=== PATIENT | male | born 1945 | race Hispanic/Latino ===

== ENCOUNTER → 2018-09-13 | Outpatient (CLI) | payer OTHER ==
[~2018-09-13] MED LIST: ATOR10 PO; CHOL200013 PO; CLOP75TA14 PO; CYAN10009 PO; GLIP1TAB6 PO; ISOS30TA6 PO; LOSA1TAB37 PO; METO-391 PO
== END | disposition home or self-care (01) ==
LOC: RAH 13:53
PROVIDERS: ATTEND Internal Medicine
DX: S09.90XA Unspecified injury of head, initial encounter (principal); S00.03XA Contusion of scalp, initial encounter; Z86.73 Personal history of transient ischemic attack (TIA), and cerebral infarction without residual deficits; W19.XXXA Unspecified fall, initial encounter; Y93.89 Activity, other specified; Y92.89 Other specified places as the place of occurrence of the external cause; Y99.8 Other external cause status
CPT/HCPCS: 70450

== ENCOUNTER → 2018-10-24 | Outpatient (CLI) | payer OTHER | END | disposition home or self-care (01) | LOC: SHCH 14:32 | PROVIDERS: ATTEND Internal Medicine Cardiovascular Disease | DX: I73.9 Peripheral vascular disease, unspecified (principal); I87.2 Venous insufficiency (chronic) (peripheral) | CPT/HCPCS: 93925; 93970 ==

== ENCOUNTER → 2019-07-31 | Outpatient (CLI) | payer OTHER ==
[~2019-07-31] MED LIST changes: +CYAN-52 PO; -CYAN10009 PO
== END | disposition home or self-care (01) ==
LOC: SHCH 07:37
PROVIDERS: ATTEND Internal Medicine Cardiovascular Disease
DX: I65.23 Occlusion and stenosis of bilateral carotid arteries (principal)
CPT/HCPCS: 93880

== ENCOUNTER → 2020-03-04 | Outpatient (CLI) | payer OTHER | END | disposition home or self-care (01) | LOC: SHCH 12:49 | PROVIDERS: ATTEND Internal Medicine Cardiovascular Disease | DX: I35.1 Nonrheumatic aortic (valve) insufficiency (principal); I65.23 Occlusion and stenosis of bilateral carotid arteries; I25.5 Ischemic cardiomyopathy; I10 Essential (primary) hypertension; E66.9 Obesity, unspecified; E78.5 Hyperlipidemia, unspecified; E11.9 Type 2 diabetes mellitus without complications | CPT/HCPCS: 93306; 93356; 93880 ==

== ENCOUNTER 2021-03-09 06:04 | Day surgery (SDC) | payer OTHER ==
[2021-03-03 13:48] LABS: BASOPHILS % (AUTO) 0.4 % (0.0-5.0); EOSINOPHILS % (AUTO) 1.2 % (0.0-8.0); HEMATOCRIT 37.5 % (42-54); LYMPHOCYTES % (AUTO) 12.5 % (21.0-51.0); MEAN CORPUSCULAR HEMOGLOBIN 29.5 pg (27.0-33.0); MEAN CORPUSCULAR HGB CONC 32.5 g/dL (32.0-36.0); MEAN CORPUSCULAR VOLUME 90.6 fL (79-99); MONOCYTES % (AUTO) 5.4 % (3.0-13.0); NEUTROPHILS % (AUTO) 79.6 % (40.0-77.0); PLATELET COUNT (AUTO) 173 K/uL (130-400); RED BLOOD CELL COUNT(AUTO) 4.14 MIL/uL (4.50-6.20); RED CELL DISTRIBUTION WIDTH 15.3 % (11.0-15.5); WHITE BLOOD COUNT (AUTO) 9.3 K/uL (4.8-10.8)
[2021-03-03 13:53] LABS: APPEARANCE,URINE Clear (CLEAR); BILIRUBIN,URINE Negative (NEGATIVE); COLOR,URINE Yellow (YELLOW); GLUCOSE, URINE (UA) >=1000 mg/dL (NEGATIVE); KETONES,URINE Trace mg/dL (NEGATIVE); LEUKOCYTE ESTERASE ,URINE Negative (NEGATIVE); NITRATE,URINE Negative (NEGATIVE); OCCULT BLOOD,URINE Negative (NEGATIVE); PROTEIN,URINE Negative (NEGATIVE)
[2021-03-03 13:57] LABS: BACTERIA,URINE Rare /HPF (None Seen); RBC,URINE 0-1 /HPF (0-1); SQUAMOUS EPITHELIAL CELL,UR Rare /HPF (0-2); WBC,URINE 0-1 /HPF (0-1)
[2021-03-03 14:01] LABS: INR 0.98 (0.85-1.15); PROTHROMBIN TIME 10.7 SEC (9.6-11.6)
[2021-03-03 14:03] LABS: PARTIAL THROMBOPLASTIN TIME 28.8 SEC (26.3-35.5); POTASSIUM 4.3 mmol/L (3.5-5.1)
[2021-03-08 15:13] VITALS: BP 125/58
[2021-03-09] VITALS (10 sets, daily range): BP systolic 101–153; BP diastolic 54–79
[~2021-03-09] VITALS: Ht 172.7 cm; Wt 95.9 kg
[~2021-03-09 06:04] MED LIST changes: +APIX5TAB PO; +BUSP7.5T7 PO; -CLOP75TA14 PO; -ISOS30TA6 PO; +ISOS30TA92 PO; -METO-391 PO; +METO-408 PO; +PIOG15TA66 PO
[2021-03-09] MEDS ORDERED: 0.9%NACL 1000ML 1,000 ML IV ONE (06:07)
[2021-03-09] MEDS ORDERED: BUPIVACAINE/PF 0.25% 30ML VIAL IJ ONE (07:32)
[2021-03-09] MEDS ORDERED: LIDOCAINE HCL 1% MDV 50ML VIAL ONE (07:33)
[2021-03-09] MEDS ORDERED: MIDAZOLAM HCL 1 MG/ML 2ML VIAL ONE ×2 (07:33→07:50)
[2021-03-09] MEDS ORDERED: MEPERIDINE-PF 25 MG/ML SYG ONE ×2 (07:33→07:51)
[2021-03-09] MEDS ORDERED: CEFAZOLIN SODIUM 1 GM VIAL ONE (07:34)
[2021-03-09] MEDS ORDERED: 0.9%NACL 1000ML 1,000 ML IV SCH (08:00)
[2021-03-09] MEDS ORDERED: THROMBIN-JMI 5000 UNIT/VIAL TP ONE (08:00)
[2021-03-09] MEDS ORDERED: ACETAMINOPHEN 325 MG TAB PO PRN ×2 (09:00)
[2021-03-09] MEDS ORDERED: CEFAZOLIN SODIUM 1 GM VIAL IVP SCH (14:00)
== END 2021-03-09 14:00 | disposition home or self-care (01) ==
LOC: DAH 06:04
PROVIDERS: ATTEND Internal Medicine Cardiovascular Disease
DX: Z45.02 Encounter for adjustment and management of automatic implantable cardiac defibrillator (principal); I25.5 Ischemic cardiomyopathy; I49.5 Sick sinus syndrome; Z20.822 Contact with and (suspected) exposure to COVID-19; I50.42 Chronic combined systolic (congestive) and diastolic (congestive) heart failure; I11.0 Hypertensive heart disease with heart failure; I48.0 Paroxysmal atrial fibrillation; I25.10 Atherosclerotic heart disease of native coronary artery without angina pectoris; I25.2 Old myocardial infarction; E78.5 Hyperlipidemia, unspecified; E11.9 Type 2 diabetes mellitus without complications; Z79.01 Long term (current) use of anticoagulants; Z79.899 Other long term (current) drug therapy; Z98.890 Other specified postprocedural states; Z95.1 Presence of aortocoronary bypass graft; Z87.891 Personal history of nicotine dependence
CPT/HCPCS: 33263; 36415; 71045; 80048; 81001; 82948; 85025; 85610; 85730; 93005; A4215; A4216; A4221; A4222; A4223 ×3; A4606; A4663; C1721; J0690 ×2; J2175 ×2; J2250 ×2; J3490 ×3; J7030; 99156; 99157

== ENCOUNTER 2021-04-30 16:26 | Inpatient (IN) | payer OTHER ==
[~2021-04-30] VITALS: Ht 170.2 cm; Wt 94.8 kg
[2021-04-30] MEDS ORDERED: DILTIAZEM 25MG INJ IVP ONE (16:41)
[2021-04-30 16:59] LABS: BASOPHILS % (AUTO) 0.4 % (0.0-5.0); EOSINOPHILS % (AUTO) 0.9 % (0.0-8.0); HEMATOCRIT 37.8 % (42-54); LYMPHOCYTES % (AUTO) 17.3 % (21.0-51.0); MEAN CORPUSCULAR HEMOGLOBIN 29.1 pg (27.0-33.0); MEAN CORPUSCULAR HGB CONC 33.1 g/dL (32.0-36.0); MEAN CORPUSCULAR VOLUME 87.9 fL (79-99); MONOCYTES % (AUTO) 6.8 % (3.0-13.0); NEUTROPHILS % (AUTO) 73.8 % (40.0-77.0); PLATELET COUNT (AUTO) 163 K/uL (130-400); WHITE BLOOD COUNT (AUTO) 9.6 K/uL (4.8-10.8)
[2021-04-30] MEDS ORDERED: DILTIAZEM 125 MG/25 ML INJ 125 MG in 0.9%NACL 100ML 100 ML IV SCH (17:00)
[2021-04-30] MEDS ORDERED: DILTIAZEM 25MG INJ IVP SCH (17:00)
[2021-04-30] MEDS ORDERED: METOPROLOL TARTRATE 1 MG/ML 5ML VIAL IV ONE ×2 (17:01→18:00)
[2021-04-30 17:08] LABS: APPEARANCE,URINE CLOUDY (CLEAR); BILIRUBIN,URINE NEGATIVE (NEGATIVE); COLOR,URINE YELLOW (YELLOW); GLUCOSE, URINE (UA) >=1000 mg/dL (NEGATIVE); KETONES,URINE 5 mg/dL (NEGATIVE); LEUKOCYTE ESTERASE ,URINE SMALL (NEGATIVE); NITRATE,URINE POSITIVE (NEGATIVE); OCCULT BLOOD,URINE SMALL (NEGATIVE); PH,URINE 5.5 (5.0-8.0); PROTEIN,URINE 30 mg/dL (NEGATIVE); UROBILINOGEN,URINE 0.2 mg/dL (0.2-1.0)
[2021-04-30] MEDS ORDERED: CYAN-35 PO (17:11)
[2021-04-30] MEDS ORDERED: METO-391 PO ×2 (17:11→21:45)
[2021-04-30] MEDS ORDERED: CHOL2400 MC (17:11)
[2021-04-30] MEDS ORDERED: PIOG15TA66 PO (17:11)
[2021-04-30] MEDS ORDERED: GLIP1TAB6 PO (17:11)
[2021-04-30 17:15] LABS: BACTERIA,URINE Few /HPF (None Seen); SQUAMOUS EPITHELIAL CELL,UR Rare /HPF (0-2); WBC,URINE 26-50 /HPF (0-1)
[2021-04-30 17:18] LABS: B-TYPE NATRIURETIC PEPTIDE 146 pg/mL (0-100)
[2021-04-30 17:19] LABS: CREATININE 1.3 mg/dL (0.5-1.5); POTASSIUM 3.4 mmol/L (3.5-5.1)
[2021-04-30 17:32] LABS: INR 1.03 (0.85-1.15); PROTHROMBIN TIME 11.2 SEC (9.6-11.6)
[2021-04-30 17:33] LABS: PARTIAL THROMBOPLASTIN TIME 29.6 SEC (26.3-35.5)
[2021-04-30 17:36] LABS: ALBUMIN 3.6 g/dL (3.5-5.0); BILIRUBIN,TOTAL 0.3 mg/dL (0.2-1.0); MAGNESIUM 1.4 mg/dL (1.80-2.40)
[2021-04-30] MEDS ORDERED: INSULIN HUMULIN R 100 UNIT/ML 3ML SQ ONE (18:00)
[2021-04-30] MEDS ORDERED: CEFTRIAXONE 1G VIAL IVP ONE (18:00)
[2021-04-30] MEDS ORDERED: MAGNESIUM 2GM PREMIX 50ML 50 ML IV SCH (18:30)
[2021-04-30] MEDS ORDERED: AMIODARONE 900MG VIAL 540 MG in DEXTROSE 5%-WATER 300 ML IV PRN (18:30)
[2021-04-30] MEDS ORDERED: D5W IV PRN ×2 (18:30)
[2021-04-30] MEDS ORDERED: AMIODARONE 150 MG in DEXTROSE 5%-WATER 100 ML IV PRN (18:30)
[2021-04-30] MEDS ORDERED: AMIODARONE 360 MG IV PRN ×2 (18:30)
[2021-04-30] MEDS ORDERED: DEXTROSE 50%-WATER 50 ML DISP.SYRIN IV PRN (19:00)
[2021-04-30] MEDS ORDERED: GLUCAGON 1MG KIT 1 MG ML IM PRN (19:00)
[2021-04-30] MEDS ORDERED: CEFTRIAXONE 1G VIAL ONE (19:24)
[2021-04-30] MEDS ORDERED: METOPROLOL SUCCINATE 50 MG TAB.SR.24H PO ONE (19:24)
[2021-04-30] MEDS ORDERED: INSULIN HUMULIN R 100 UNIT/ML 3ML ONE (19:25)
[2021-04-30] MEDS: INSULIN R PO SS1 SQ SCH (20:01)
[2021-04-30] MEDS ORDERED: METOPROLOL SUCCINATE 50 MG TAB.SR.24H PO SCH (21:00)
[2021-04-30] MEDS: PHARMACY COMMUNICATION MISC SCH (22:00)
[2021-04-30] MEDS ORDERED: ACETAMINOPHEN 325 MG TAB PO PRN ×2 (22:00)
[2021-04-30] MEDS ORDERED: LACTULOSE 20 GM/30 ML UDCUP PO PRN (22:00)
[2021-04-30] MEDS ORDERED: DIPHENHYDRAMINE HCL 25 MG CAPSULE PO PRN (22:00)
[2021-04-30] MEDS ORDERED: ONDANSETRON 4MG INJ IV PRN (22:00)
[2021-04-30] MEDS ORDERED: DiphenhydrAMINE HCL 50 MG/ML VIAL IV PRN (22:00)
[2021-04-30] MEDS ORDERED: MAG/ALUM/SIMETH 30 ML UDCUP PO PRN (22:00)
[2021-04-30] MEDS ORDERED: POTASSIUM CHLORIDE 10% ELIXIR 20 MEQ/15 ML UDCUP PO PRN (22:30)
[2021-04-30] MEDS ORDERED: LIDOCAINE HCL-MPF 1% 2ML VIAL IV PRN (22:30)
[2021-04-30] MEDS ORDERED: POTASSIUM CHLORIDE 20MEQ/100ML 100 ML IV PRN (22:30)
[2021-04-30] MEDS ORDERED: KCL 20 MEQ ERTAB PO PRN (22:30)
[2021-04-30] MEDS: 0.9%NACL 1000ML 1,000 ML IV SCH (22:44)
[2021-05-01] MEDS ORDERED: ACETAMINOPHEN 325 MG TAB PO SCH
[2021-05-01 00:16] VITALS: BP 112/61
[2021-05-01] MEDS: PHARMACY COMMUNICATION MISC SCH ×6 (04:17→21:00)
[2021-05-01 05:48] VITALS: BP 119/58
[2021-05-01] MEDS: ONDANSETRON 4MG TABLET PO SCH ×4 (05:48→15:34)
[2021-05-01 05:55] LABS: BASOPHILS % (AUTO) 0.3 % (0.0-5.0); EOSINOPHILS % (AUTO) 1.2 % (0.0-8.0); HEMATOCRIT 36.9 % (42-54); LYMPHOCYTES % (AUTO) 11.4 % (21.0-51.0); MEAN CORPUSCULAR HEMOGLOBIN 29.4 pg (27.0-33.0); MEAN CORPUSCULAR HGB CONC 32.5 g/dL (32.0-36.0); MEAN CORPUSCULAR VOLUME 90.4 fL (79-99); MONOCYTES % (AUTO) 5.6 % (3.0-13.0); NEUTROPHILS % (AUTO) 80.9 % (40.0-77.0); PLATELET COUNT (AUTO) 156 K/uL (130-400); RED BLOOD CELL COUNT(AUTO) 4.08 MIL/uL (4.50-6.20); RED CELL DISTRIBUTION WIDTH 15.2 % (11.0-15.5); WHITE BLOOD COUNT (AUTO) 10.6 K/uL (4.8-10.8)
[2021-05-01 07:17] LABS: POTASSIUM 3.6 mmol/L (3.5-5.1)
[2021-05-01] MEDS: INSULIN R PO SS1 SQ SCH ×4 (07:30→21:00)
[2021-05-01] MEDS ORDERED: METOPROLOL SUCCINATE 50 MG TAB.SR.24H PO SCH ×5 (08:00→09:00)
[2021-05-01 08:39] VITALS: BP 146/76
[2021-05-01] MEDS ORDERED: APIXABAN 5 MG TABLET PO SCH (09:00)
[2021-05-01] MEDS ORDERED: NON-FORMULARY MEDICATION 1 EACH (Metoprolol Succinate 25 MG) PO SCH (09:00)
[2021-05-01] MEDS: PIOGLITAZONE 15MG TAB PO SCH (09:54)
[2021-05-01] MEDS: BUSPIRONE HCL 5 MG TABLET PO SCH ×2 (09:54→22:11)
[2021-05-01] MEDS: ISOSORBIDE MONO 30MG SR TAB PO SCH (09:54)
[2021-05-01] MEDS: METFORMIN HCL 500 MG TABLET PO SCH ×2 (09:54→17:08)
[2021-05-01] MEDS: GLIPIZIDE 5 MG TABLET PO SCH ×2 (09:54→17:08)
[2021-05-01] MEDS: ENOXAPARIN SODIUM 40 MG/0.4 ML SYRINGE SQ SCH (09:55)
[2021-05-01] MEDS: METOPROLOL SUCCINATE 50 MG TAB.SR.24H PO SCH (09:55)
[2021-05-01 12:21] VITALS: BP 104/55
[2021-05-01] MEDS: 0.9%NACL 1000ML 1,000 ML IV SCH (15:33)
[2021-05-01 16:45] VITALS: BP 112/57
[2021-05-01 20:00] VITALS: BP 121/66
[2021-05-01] MEDS: ATORVASTATIN 10 MG TABLET PO SCH (22:10)
[2021-05-01] MEDS: AMIODARONE 200 MG TABLET PO SCH (22:11)
[2021-05-02] VITALS (7 sets, daily range): BP systolic 112–124; BP diastolic 51–66
[2021-05-02] MEDS: PHARMACY COMMUNICATION MISC SCH ×6 (01:00→21:00)
[2021-05-02] MEDS: ONDANSETRON 4MG TABLET PO SCH ×4 (01:12→17:16)
[2021-05-02] MEDS: INSULIN R PO SS1 SQ SCH ×4 (07:30→21:00)
[2021-05-02 08:42] LABS: HEMATOCRIT 38.7 % (42-54); MEAN CORPUSCULAR HEMOGLOBIN 29.3 pg (27.0-33.0); MEAN CORPUSCULAR HGB CONC 32.8 g/dL (32.0-36.0); MEAN CORPUSCULAR VOLUME 89.2 fL (79-99); RED BLOOD CELL COUNT(AUTO) 4.34 MIL/uL (4.50-6.20); RED CELL DISTRIBUTION WIDTH 15.2 % (11.0-15.5)
[2021-05-02 08:57] LABS: MAGNESIUM 1.9 mg/dL (1.80-2.40); POTASSIUM 4.2 mmol/L (3.5-5.1)
[2021-05-02] MEDS: BUSPIRONE HCL 5 MG TABLET PO SCH ×2 (12:46→20:41)
[2021-05-02] MEDS: PIOGLITAZONE 15MG TAB PO SCH (12:46)
[2021-05-02] MEDS: ISOSORBIDE MONO 30MG SR TAB PO SCH (12:47)
[2021-05-02] MEDS: PANTOPRAZOLE 40 MG TAB DR PO SCH (12:47)
[2021-05-02] MEDS: AMIODARONE 200 MG TABLET PO SCH ×2 (12:47→20:41)
[2021-05-02] MEDS: METOPROLOL SUCCINATE 50 MG TAB.SR.24H PO SCH (12:48)
[2021-05-02] MEDS: ENOXAPARIN SODIUM 40 MG/0.4 ML SYRINGE SQ SCH (12:48)
[2021-05-02] MEDS: 0.9%NACL 1000ML 1,000 ML IV SCH (14:00)
[2021-05-02] MEDS: ATORVASTATIN 10 MG TABLET PO SCH (20:40)
[2021-05-03] MEDS: PHARMACY COMMUNICATION MISC SCH ×4 (01:00→12:18)
[2021-05-03] MEDS: ONDANSETRON 4MG TABLET PO SCH ×3 (03:20→12:00)
[2021-05-03 04:18] VITALS: BP 131/63
[2021-05-03 04:31] LABS: HEMATOCRIT 36.4 % (42-54); MEAN CORPUSCULAR HEMOGLOBIN 29.4 pg (27.0-33.0); MEAN CORPUSCULAR HGB CONC 32.4 g/dL (32.0-36.0); MEAN CORPUSCULAR VOLUME 90.5 fL (79-99); RED BLOOD CELL COUNT(AUTO) 4.02 MIL/uL (4.50-6.20); RED CELL DISTRIBUTION WIDTH 15.3 % (11.0-15.5); WHITE BLOOD COUNT (AUTO) 7.7 K/uL (4.8-10.8)
[2021-05-03 04:46] LABS: POTASSIUM 3.8 mmol/L (3.5-5.1)
[2021-05-03 07:00] VITALS: BP 158/67
[2021-05-03] MEDS: PANTOPRAZOLE 40 MG TAB DR PO SCH (09:07)
[2021-05-03] MEDS: PIOGLITAZONE 15MG TAB PO SCH (09:08)
[2021-05-03] MEDS: ISOSORBIDE MONO 30MG SR TAB PO SCH (09:08)
[2021-05-03] MEDS: BUSPIRONE HCL 5 MG TABLET PO SCH (09:08)
[2021-05-03] MEDS: AMIODARONE 200 MG TABLET PO SCH (09:09)
[2021-05-03] MEDS: METOPROLOL SUCCINATE 50 MG TAB.SR.24H PO SCH (09:09)
[2021-05-03] MEDS: ENOXAPARIN SODIUM 40 MG/0.4 ML SYRINGE SQ SCH (09:10)
[2021-05-03] MEDS: INSULIN R PO SS1 SQ SCH ×2 (09:11→12:32)
[2021-05-03] MEDS: 0.9%NACL 1000ML 1,000 ML IV SCH (09:12)
[2021-05-03 11:00] VITALS: BP 113/59
[2021-05-03] MEDS ORDERED: AMIO200T68 PO (14:24)
[2021-05-03] MEDS ORDERED: METO-409 PO (14:24)
[2021-05-03] MEDS ORDERED: LOSA25TA41 PO (14:24)
[2021-05-03] MEDS ORDERED: GLIPIZIDE XL 10MG TAB PO SCH (14:30)
[2021-05-03] MEDS ORDERED: METFORMIN HCL 500 MG TAB.SR.24H PO SCH (14:30)
[2021-05-03] MEDS ORDERED: APIXABAN 5 MG TABLET PO SCH (14:30)
== END 2021-05-03 15:45 | disposition home or self-care (01) | DRG 309 ==
LOC: EDH 16:26 → EDHIP 18:30 → 2DH 05-01 08:30
PROVIDERS: ADMIT Internal Medicine; ATTEND Internal Medicine
PROC: 4B02XSZ Measurement of Cardiac Pacemaker, External Approach (ICD-10-PCS; principal; 2021-05-02)
DX: I48.0 Paroxysmal atrial fibrillation (principal); I69.354 Hemiplegia and hemiparesis following cerebral infarction affecting left non-dominant side; I25.10 Atherosclerotic heart disease of native coronary artery without angina pectoris; I25.5 Ischemic cardiomyopathy; I49.5 Sick sinus syndrome; E11.65 Type 2 diabetes mellitus with hyperglycemia; E11.42 Type 2 diabetes mellitus with diabetic polyneuropathy; E11.22 Type 2 diabetes mellitus with diabetic chronic kidney disease; E11.36 Type 2 diabetes mellitus with diabetic cataract; E03.9 Hypothyroidism, unspecified; F41.1 Generalized anxiety disorder; N18.2 Chronic kidney disease, stage 2 (mild); E78.2 Mixed hyperlipidemia; L91.0 Hypertrophic scar; H26.9 Unspecified cataract; I13.10 Hypertensive heart and chronic kidney disease without heart failure, with stage 1 through stage 4 chronic kidney disease, or unspecified chronic kidney disease; E78.00 Pure hypercholesterolemia, unspecified; I25.2 Old myocardial infarction; Z95.1 Presence of aortocoronary bypass graft; Z79.01 Long term (current) use of anticoagulants; Z79.899 Other long term (current) drug therapy; Z83.3 Family history of diabetes mellitus; Z82.5 Family history of asthma and other chronic lower respiratory diseases; Z82.49 Family history of ischemic heart disease and other diseases of the circulatory system; Z82.3 Family history of stroke; Z82.0 Family history of epilepsy and other diseases of the nervous system; Z95.810 Presence of automatic (implantable) cardiac defibrillator
CPT/HCPCS: 36415; 71045; 80048; 80053; 80061; 81001; 82550; 82948; 83735; 83874; 83880; 84484; 85025; 85027; 85378; 85610; 85730; 87077; 87088; 87186; 93005; 93306; 93356; 99291; G0378; J0282; J0696; J1650; J1815; J3475; J3490; J7060; Q0162

== ENCOUNTER → 2022-02-22 | Outpatient (CLI) | payer OTHER ==
[~2022-02-22] MED LIST changes: +ALBUTEROL 0.083% 2.5 MG/3 ML INH IH ONE; +AMIO200T68 PO; +CYAN-35 PO; -CYAN-52 PO; -LOSA1TAB37 PO; +LOSA25TA41 PO; -METO-408 PO; +METO-409 PO
== END | disposition home or self-care (01) ==
LOC: RESP 08:55
PROVIDERS: ATTEND Internal Medicine Cardiovascular Disease
DX: I48.0 Paroxysmal atrial fibrillation (principal); R06.02 Shortness of breath
CPT/HCPCS: 94060; 94727; 94729

== ENCOUNTER → 2022-03-31 | Outpatient (CLI) | payer OTHER ==
[~2022-03-31] MED LIST changes: -ALBUTEROL 0.083% 2.5 MG/3 ML INH IH ONE; +REGADENOSON 0.4 MG/5 ML PF SYG IVP SCH
== END | disposition home or self-care (01) ==
LOC: SHCH 08:00
PROVIDERS: ATTEND Internal Medicine Cardiovascular Disease
DX: I48.0 Paroxysmal atrial fibrillation (principal); I11.9 Hypertensive heart disease without heart failure; I95.1 Orthostatic hypotension; E11.9 Type 2 diabetes mellitus without complications; E78.5 Hyperlipidemia, unspecified; Z95.1 Presence of aortocoronary bypass graft; Z95.810 Presence of automatic (implantable) cardiac defibrillator; Z79.01 Long term (current) use of anticoagulants; Z79.84 Long term (current) use of oral hypoglycemic drugs; Z79.899 Other long term (current) drug therapy
CPT/HCPCS: 78452; 96374; 93017; J2785; A9500 ×2

== ENCOUNTER → 2022-05-09 | Outpatient (CLI) | payer OTHER ==
[~2022-05-09] MED LIST changes: -REGADENOSON 0.4 MG/5 ML PF SYG IVP SCH
== END | disposition home or self-care (01) ==
LOC: SHCH 09:50
PROVIDERS: ATTEND Internal Medicine Cardiovascular Disease
DX: I73.9 Peripheral vascular disease, unspecified (principal); I87.2 Venous insufficiency (chronic) (peripheral)
CPT/HCPCS: 93925; 93970

== ENCOUNTER 2022-06-12 07:45 | Day surgery (SDC) | payer OTHER ==
[2022-06-07 11:15] LABS: BASOPHILS % (AUTO) 0.4 % (0.0-5.0); EOSINOPHILS % (AUTO) 0.8 % (0.0-8.0); HEMATOCRIT 37.7 % (42-54); LYMPHOCYTES % (AUTO) 10.2 % (21.0-51.0); MEAN CORPUSCULAR HGB CONC 32.4 g/dL (32.0-36.0); MEAN CORPUSCULAR VOLUME 92.6 fL (79-99); MONOCYTES % (AUTO) 7.1 % (3.0-13.0); NEUTROPHILS % (AUTO) 80.2 % (40.0-77.0); PLATELET COUNT (AUTO) 178 K/uL (130-400); RED BLOOD CELL COUNT(AUTO) 4.07 MIL/uL (4.50-6.20); RED CELL DISTRIBUTION WIDTH 15.9 % (11.0-15.5); WHITE BLOOD COUNT (AUTO) 9.1 K/uL (4.8-10.8)
[2022-06-07 11:24] LABS: CREATININE 1.2 mg/dL (0.5-1.5); POTASSIUM 4.9 mmol/L (3.5-5.1)
[2022-06-07 11:28] LABS: INR 0.94 (0.85-1.15); PROTHROMBIN TIME 10.3 SEC (9.6-11.6)
[2022-06-07 11:29] LABS: PARTIAL THROMBOPLASTIN TIME 28.9 SEC (26.3-35.5)
[2022-06-07 11:29] LABS: APPEARANCE,URINE CLEAR (CLEAR); BILIRUBIN,URINE NEGATIVE (NEGATIVE); COLOR,URINE LIGHT-YELLOW (YELLOW); GLUCOSE, URINE (UA) TRACE mg/dL (NEGATIVE); KETONES,URINE NEGATIVE (NEGATIVE); LEUKOCYTE ESTERASE ,URINE 250 Leu/uL (NEGATIVE); NITRATE,URINE NEGATIVE (NEGATIVE); OCCULT BLOOD,URINE NEGATIVE (NEGATIVE); PROTEIN,URINE NEGATIVE (NEGATIVE); UROBILINOGEN,URINE 0.2 mg/dL (0.2-1.0)
[2022-06-07 11:39] LABS: BACTERIA,URINE MANY /HPF (None Seen); MUCUS,URINE RARE LPF (None Seen); RBC,URINE 0-1 /HPF (0-1); SQUAMOUS EPITHELIAL CELL,UR RARE /HPF (0-2); WBC,URINE 26-50 /HPF (0-1)
[2022-06-07 11:47] LABS: B-TYPE NATRIURETIC PEPTIDE 197 pg/mL (0-100)
[2022-06-09 12:28] VITALS: BP 144/70
[~2022-06-12] VITALS: Ht 172.7 cm; Wt 9.5 kg
[2022-06-12] VITALS (12 sets, daily range): BP systolic 130–163; BP diastolic 61–84
[~2022-06-12 07:45] MED LIST changes: +0.9%NACL 1000ML 1,000 ML IV SCH; -LOSA25TA41 PO; +LOSA50TA64 PO; +METO-391 PO; -METO-409 PO
[2022-06-12] MEDS ORDERED: IOHEXOL-350 50ML VIAL IV ONE (11:51)
[2022-06-12] MEDS ORDERED: IOHEXOL 350 MG/ML 100ML INFUS..BTL IV ONE ×2 (11:51→12:24)
[2022-06-12] MEDS ORDERED: HEPARIN 10,000 UNIT/10ML (1,000 UNIT/ML) VIAL ONE (11:51)
[2022-06-12] MEDS ORDERED: MIDAZOLAM HCL 1 MG/ML 2ML VIAL ONE ×2 (11:51→13:25)
[2022-06-12] MEDS ORDERED: LIDOCAINE HCL 1% 20 ML VIAL ONE (11:51)
[2022-06-12] MEDS ORDERED: NITROGLYCERIN 50MG VIAL ONE (11:51)
[2022-06-12] MEDS ORDERED: SODIUM BICARB 50MEQ 50ML VIAL 50 ML ONE (11:51)
[2022-06-12] MEDS ORDERED: MEPERIDINE-PF 25 MG/ML SYG ONE ×2 (11:52→13:25)
[2022-06-12] MEDS ORDERED: HYDRALAZINE 20MG/ML VIAL ONE (12:52)
[2022-06-12] MEDS ORDERED: ASPIRIN 325MG EC TAB PO ONE (14:14)
[2022-06-12] MEDS ORDERED: CLOPIDOGREL 300MG TAB ONE (14:14)
[2022-06-12] MEDS ORDERED: 0.9%NACL 1000ML 1,000 ML IV SCH (14:30)
== END 2022-06-12 20:00 | disposition home or self-care (01) ==
LOC: DAH 07:45
PROVIDERS: ATTEND Internal Medicine Cardiovascular Disease
DX: I25.119 Atherosclerotic heart disease of native coronary artery with unspecified angina pectoris (principal); I25.719 Atherosclerosis of autologous vein coronary artery bypass graft(s) with unspecified angina pectoris; I25.82 Chronic total occlusion of coronary artery; I25.5 Ischemic cardiomyopathy; I11.0 Hypertensive heart disease with heart failure; I50.42 Chronic combined systolic (congestive) and diastolic (congestive) heart failure; E11.51 Type 2 diabetes mellitus with diabetic peripheral angiopathy without gangrene; E78.5 Hyperlipidemia, unspecified; I48.0 Paroxysmal atrial fibrillation; I25.2 Old myocardial infarction; Z79.01 Long term (current) use of anticoagulants; Z79.899 Other long term (current) drug therapy; Z79.84 Long term (current) use of oral hypoglycemic drugs; Z86.73 Personal history of transient ischemic attack (TIA), and cerebral infarction without residual deficits; Z82.49 Family history of ischemic heart disease and other diseases of the circulatory system; Z95.5 Presence of coronary angioplasty implant and graft
CPT/HCPCS: 80048; 83880; 85025; 85610; 85730; 87077; 87088; 87186; 81001; 36415; 71045; 93005; 85347; 82948 ×2; 92920; 93459; C9600; C1769 ×3; C1887 ×5; C1894; C1760; C1874; C1725; J7030; J3490 ×2; J0360; J1644 ×3; J2250 ×2; J2175 ×2; Q9967 ×3; A4215; A4222; A4221; A4663; A4216; A4606; Q9965 ×2; A4223 ×3; 93458; 99156; 99157

== ENCOUNTER → 2023-06-25 | Outpatient (CLI) | payer OTHER ==
[~2023-06-25] MED LIST changes: -0.9%NACL 1000ML 1,000 ML IV SCH
== END | disposition home or self-care (01) ==
LOC: RAH 14:40
PROVIDERS: ATTEND Internal Medicine
DX: M19.071 Primary osteoarthritis, right ankle and foot (principal); M77.31 Calcaneal spur, right foot; M21.969 Unspecified acquired deformity of unspecified lower leg
CPT/HCPCS: 73630

== ENCOUNTER 2023-08-21 12:13 | Observation (INO) | payer OTHER ==
[~2023-08-21] VITALS: Ht 172.7 cm; Wt 92.3 kg
[2023-08-21 13:34] LABS: HEMATOCRIT 42.1 % (42-54); MEAN CORPUSCULAR HEMOGLOBIN 29.1 pg (27.0-33.0); MEAN CORPUSCULAR HGB CONC 32.3 g/dL (32.0-36.0); RED BLOOD CELL COUNT(AUTO) 4.68 MIL/uL (4.50-6.20); RED CELL DISTRIBUTION WIDTH 15.6 % (11.0-15.5); WHITE BLOOD COUNT (AUTO) 10.8 K/uL (4.8-10.8)
[2023-08-21 13:48] LABS: CREATININE 1.4 mg/dL (0.5-1.3); POTASSIUM 5.3 mmol/L (3.5-5.1)
[2023-08-21 13:53] LABS: ALBUMIN 3.5 g/dL (3.5-5.0); BILIRUBIN,TOTAL 0.4 mg/dL (0.2-1.0); TOTAL PROTEIN, SERUM 6.8 g/dL (6.0-8.3)
[2023-08-21] MEDS ORDERED: GLIP1TAB6 PO ×3 (14:55→14:57)
[2023-08-21] MEDS ORDERED: BUSP7.5T7 PO (14:56)
[2023-08-21] MEDS ORDERED: CLOP-31 PO (14:56)
[2023-08-21] MEDS: 0.9%NACL 1000ML 1,000 ML IV SCH (15:16)
[2023-08-21] MEDS ORDERED: POTASSIUM CHLORIDE 10% ELIXIR 20 MEQ/15 ML UDCUP PO PRN (15:30)
[2023-08-21] MEDS ORDERED: MAG/ALUM/SIMETH 30 ML UDCUP PO PRN (15:30)
[2023-08-21] MEDS ORDERED: MAGNESIUM 2GM PREMIX 50ML 50 ML IV PRN (15:30)
[2023-08-21] MEDS ORDERED: POTASSIUM CHLORIDE 20MEQ/100ML 100 ML IV PRN (15:30)
[2023-08-21] MEDS ORDERED: GLUCAGON 1MG KIT 1 MG ML IM PRN (15:30)
[2023-08-21] MEDS ORDERED: ACETAMINOPHEN 325 MG TAB PO PRN ×2 (15:30)
[2023-08-21] MEDS ORDERED: DEXTROSE 50%-WATER 50 ML DISP.SYRIN IV PRN (15:30)
[2023-08-21] MEDS ORDERED: KCL 20 MEQ ERTAB PO PRN (15:30)
[2023-08-21] MEDS ORDERED: LACTULOSE 20 GM/30 ML UDCUP PO PRN (15:30)
[2023-08-21] MEDS ORDERED: ONDANSETRON 4MG INJ IV PRN (15:30)
[2023-08-21 15:36] LABS: BILIRUBIN,URINE NEGATIVE (NEGATIVE); COLOR,URINE YELLOW (YELLOW); GLUCOSE, URINE (UA) 200 mg/dL (NEGATIVE); KETONES,URINE 5 mg/dL (NEGATIVE); LEUKOCYTE ESTERASE ,URINE 250 Leu/uL (NEGATIVE); NITRATE,URINE NEGATIVE (NEGATIVE); OCCULT BLOOD,URINE NEGATIVE (NEGATIVE); PH,URINE 5.5 (5.0-8.0); PROTEIN,URINE 30 mg/dL (NEGATIVE)
[2023-08-21 15:41] LABS: ADD UA MICROSCOPIC YES; APPEARANCE,URINE HAZY (CLEAR)
[2023-08-21 15:44] LABS: BACTERIA,URINE MOD /HPF (None Seen); MUCUS,URINE FEW LPF (None Seen); SQUAMOUS EPITHELIAL CELL,UR RARE /HPF (0-2); WBC,URINE 26-50 /HPF (0-1)
[2023-08-21] MEDS: INSULIN HUMULIN R 100 UNIT/ML 3ML SQ SCH (16:14)
[2023-08-21] MEDS: CEFTRIAXONE 2GM VIAL IVPB ONE (19:51)
[2023-08-21] MEDS: APIXABAN 5 MG TABLET PO SCH (21:12)
[2023-08-21] MEDS: ATORVASTATIN 10 MG TABLET PO SCH (21:12)
[2023-08-21 21:38] VITALS: BP 158/85; PULSE 85; RESP 20
[2023-08-21] MEDS ORDERED: [UNRECOGNIZED DRUG - OTHER] PO (22:52)
[2023-08-21] MEDS ORDERED: PROBIOTIC PO (22:52)
[2023-08-21] MEDS ORDERED: BUSP15 PO ×2 (22:56)
[2023-08-21] MEDS ORDERED: CYAN-106 PO (22:59)
[2023-08-21] MEDS ORDERED: CHOL200026 PO (22:59)
[2023-08-21 23:43] VITALS: O2SAT 96
[2023-08-22] VITALS: BP 149/76; PULSE 66; RESP 20
[2023-08-22 04:00] VITALS: BP 143/70; PULSE 61; RESP 20
[2023-08-22 05:00] LABS: HEMATOCRIT 36.7 % (42-54); MEAN CORPUSCULAR HEMOGLOBIN 29.1 pg (27.0-33.0); MEAN CORPUSCULAR HGB CONC 32.7 g/dL (32.0-36.0); MEAN CORPUSCULAR VOLUME 88.9 fL (79-99); RED BLOOD CELL COUNT(AUTO) 4.13 MIL/uL (4.50-6.20); RED CELL DISTRIBUTION WIDTH 15.7 % (11.0-15.5); WHITE BLOOD COUNT (AUTO) 8.9 K/uL (4.8-10.8)
[2023-08-22 05:07] LABS: POTASSIUM 4.4 mmol/L (3.5-5.1)
[2023-08-22 08:00] VITALS: BP 159/75; PULSE 60; RESP 18
[2023-08-22] MEDS: AMIODARONE 200 MG TABLET PO SCH (08:17)
[2023-08-22] MEDS: CLOPIDOGREL 75MG TAB PO SCH (08:17)
[2023-08-22] MEDS: METOPROLOL SUCCINATE 50 MG TAB.SR.24H PO SCH (08:17)
[2023-08-22] MEDS: ISOSORBIDE MONO 30MG SR TAB PO SCH (08:18)
[2023-08-22 08:45] VITALS: O2SAT 96
[2023-08-22] MEDS ORDERED: CEPH500C2 PO (09:53)
[2023-08-22] MEDS ORDERED: LOSA50TA64 PO (09:53)
[2023-08-22] MEDS ORDERED: ISOS30TA92 PO (09:53)
[2023-08-22 12:00] VITALS: BP 128/90; PULSE 64; RESP 16
[2023-08-22] MEDS: CEPHALEXIN 500 MG CAPSULE PO SCH (12:41)
== END 2023-08-22 14:45 | disposition home or self-care (01) ==
LOC: EDH 12:13 → EDHIP 15:02 → 4BH 20:59
PROVIDERS: ADMIT Internal Medicine; ATTEND Internal Medicine
DX: I48.0 Paroxysmal atrial fibrillation (principal); N39.0 Urinary tract infection, site not specified; E86.0 Dehydration; N17.9 Acute kidney failure, unspecified; I48.20 Chronic atrial fibrillation, unspecified; I25.810 Atherosclerosis of coronary artery bypass graft(s) without angina pectoris; E11.36 Type 2 diabetes mellitus with diabetic cataract; E11.42 Type 2 diabetes mellitus with diabetic polyneuropathy; E87.5 Hyperkalemia; L91.0 Hypertrophic scar; I25.5 Ischemic cardiomyopathy; I13.10 Hypertensive heart and chronic kidney disease without heart failure, with stage 1 through stage 4 chronic kidney disease, or unspecified chronic kidney disease; E11.22 Type 2 diabetes mellitus with diabetic chronic kidney disease; N18.2 Chronic kidney disease, stage 2 (mild); E11.65 Type 2 diabetes mellitus with hyperglycemia; R00.2 Palpitations; E03.9 Hypothyroidism, unspecified; E78.5 Hyperlipidemia, unspecified; E78.00 Pure hypercholesterolemia, unspecified; Z86.73 Personal history of transient ischemic attack (TIA), and cerebral infarction without residual deficits; Z95.0 Presence of cardiac pacemaker; Z79.899 Other long term (current) drug therapy; Z95.1 Presence of aortocoronary bypass graft
CPT/HCPCS: 96374; 96361 ×2; 99284; 84484; 80053; 85027 ×2; 87040 ×2; 87077; 87088; 87186; 82948 ×3; 81001; 36415 ×2; 71045; 93005; 80048; J1815; G0378 ×24; J7030; J0696

== ENCOUNTER → 2023-11-23 | Outpatient (CLI) | payer OTHER ==
[~2023-11-23] MED LIST changes: +BUSP15 PO; -BUSP7.5T7 PO; +CEPH500C2 PO; -CHOL200013 PO; +CHOL200026 PO; +CLOP-31 PO; +CYAN-106 PO; -CYAN-35 PO; -PIOG15TA66 PO; +PROBIOTIC PO; +[UNRECOGNIZED DRUG - OTHER] PO
== END | disposition home or self-care (01) ==
LOC: SHCH 14:06
PROVIDERS: ATTEND Internal Medicine Cardiovascular Disease
DX: I08.3 Combined rheumatic disorders of mitral, aortic and tricuspid valves (principal); I25.10 Atherosclerotic heart disease of native coronary artery without angina pectoris
CPT/HCPCS: 93306

== ENCOUNTER 2023-12-14 15:57 | Emergency (ER) | payer OTHER ==
[~2023-12-14] VITALS: Ht 172.7 cm; Wt 94.3 kg
[2023-12-14] MEDS ORDERED: IOHEXOL 350 MG/ML 100ML INFUS..BTL IV ONE (16:55)
[2023-12-14 17:03] LABS: BASOPHILS # (AUTO) 0.04 K/uL (0.00-0.20); BASOPHILS % (AUTO) 0.4 % (0.0-5.0); EOSINOPHILS # (AUTO) 0.06 K/uL (0.00-0.70); EOSINOPHILS % (AUTO) 0.7 % (0.0-8.0); HEMATOCRIT 32.7 % (42-54); IMMATURE GRANULOCYTE ABSOLUTE 0.08 K/uL (0-1); LYMPHOCYTES # (AUTO) 0.9 K/uL (1.0-4.8); MEAN CORPUSCULAR HEMOGLOBIN 29.5 pg (27.0-33.0); MEAN CORPUSCULAR HGB CONC 32.4 g/dL (32.0-36.0); MEAN CORPUSCULAR VOLUME 91.1 fL (79-99); MONOCYTES # (AUTO) 0.7 K/uL (0.1-1.0); MONOCYTES % (AUTO) 8.2 % (3.0-13.0); NEUTROPHILS # (AUTO) 7.2 K/uL (1.8-7.7); NEUTROPHILS % (AUTO) 79.8 % (40.0-77.0); PLATELET COUNT (AUTO) 181 K/uL (130-400); RED BLOOD CELL COUNT(AUTO) 3.59 MIL/uL (4.50-6.20); RED CELL DISTRIBUTION WIDTH 15.2 % (11.0-15.5)
[2023-12-14 17:42] LABS: CREATININE 1.2 mg/dL (0.5-1.3); POTASSIUM 4.1 mmol/L (3.5-5.1)
[2023-12-14 17:44] LABS: ALBUMIN 3.3 g/dL (3.5-5.0); BILIRUBIN,TOTAL 0.4 mg/dL (0.2-1.0); TOTAL PROTEIN, SERUM 6.4 g/dL (6.0-8.3)
[2023-12-14 17:45] LABS: INR 1.02 (0.85-1.15); PARTIAL THROMBOPLASTIN TIME 29.4 SEC (26.3-35.5)
[2023-12-14] MEDS ORDERED: ACET-2079 PO (18:41)
[2023-12-14 18:54] VITALS: BP 128/75; PULSE 78; RESP 20; O2SAT 96
== END 2023-12-14 18:57 | disposition home or self-care (01) ==
LOC: EDH 15:57
DX: S70.12XA Contusion of left thigh, initial encounter (principal); E78.00 Pure hypercholesterolemia, unspecified; I10 Essential (primary) hypertension; Z79.899 Other long term (current) drug therapy; Z98.890 Other specified postprocedural states; W18.39XA Other fall on same level, initial encounter; Y93.89 Activity, other specified; Y92.89 Other specified places as the place of occurrence of the external cause; Y99.8 Other external cause status
CPT/HCPCS: 73701; 99284; 80053; 85025; 85610; 85730; 36415; 72193; Q9967

== ENCOUNTER → 2024-02-28 | Outpatient (CLI) | payer OTHER ==
[~2024-02-28] MED LIST changes: +ACET-2079 PO
[2024-02-28 16:42] LABS: ALBUMIN 3.3 g/dL (3.5-5.0); BILIRUBIN,TOTAL 0.3 mg/dL (0.2-1.0); CREATININE 1.2 mg/dL (0.5-1.3); MAGNESIUM 1.6 mg/dL (1.80-2.40); POTASSIUM 4.8 mmol/L (3.5-5.1); TOTAL PROTEIN, SERUM 6.6 g/dL (6.0-8.3)
== END | disposition home or self-care (01) ==
LOC: LAB 13:51
PROVIDERS: ATTEND Internal Medicine Cardiovascular Disease
DX: I10 Essential (primary) hypertension (principal)
CPT/HCPCS: 36415; 80053; 83735; 83880

== ENCOUNTER → 2024-04-09 | Outpatient (CLI) | payer OTHER ==
[2024-04-09 12:35] LABS: ALBUMIN 3.6 g/dL (3.5-5.0); BILIRUBIN,TOTAL 0.4 mg/dL (0.2-1.0); CREATININE 1.3 mg/dL (0.5-1.3); POTASSIUM 4.4 mmol/L (3.5-5.1); TOTAL PROTEIN, SERUM 6.7 g/dL (6.0-8.3)
== END | disposition home or self-care (01) ==
LOC: LAB 10:31
PROVIDERS: ATTEND Internal Medicine Cardiovascular Disease
DX: I25.10 Atherosclerotic heart disease of native coronary artery without angina pectoris (principal); R60.9 Edema, unspecified
CPT/HCPCS: 36415; 80053; 83880

== ENCOUNTER → 2024-07-03 | Outpatient (CLI) | payer OTHER ==
--- NOTE | 2024-07-03 17:14 | HMCIMG ---
Exam Type: CHEST 2VWS Clinical Information: ENCOUNTER FOR OTHER PREPROCEDURAL EXAMINATION Comparison: None Findings: The lungs are clear of infiltrates. The heart is enlarged in size. The bony and soft tissue structures of the chest are unremarkable. Left cardiac pacemaker is noted with leads in place. Impression: Clear lungs.
== END | disposition home or self-care (01) ==
LOC: RAH 15:48
PROVIDERS: ATTEND Internal Medicine
DX: Z01.818 Encounter for other preprocedural examination (principal); I51.7 Cardiomegaly; I10 Essential (primary) hypertension; Z95.0 Presence of cardiac pacemaker
CPT/HCPCS: 71046

== ENCOUNTER → 2024-12-10 | Outpatient (CLI) | payer OTHER ==
[~2024-12-10] MED LIST changes: -AMIO200T68 PO; +AMIO200T73 PO
== END | disposition home or self-care (01) ==
LOC: RESP 12:53
PROVIDERS: ATTEND Internal Medicine Cardiovascular Disease
DX: Z95.810 Presence of automatic (implantable) cardiac defibrillator (principal); Z79.899 Other long term (current) drug therapy
CPT/HCPCS: 94010; 94729

== ENCOUNTER → 2024-12-22 | Outpatient (CLI) | payer OTHER ==
--- NOTE | 2024-12-23 07:08 | HMCIMG ---
EXAM: CR Chest, 2 views CLINICAL HISTORY: Shortness of breath. COMPARISON: Chest radiograph dated 07/03/2024. FINDINGS: The lungs show no infiltrates or other acute findings. No pleural effusion or pneumothorax. The cardiomediastinal silhouette is within normal limits. Status poststernotomy. Left-sided cardiac pacemaker device is in place. Mild atherosclerotic aorta. No acute osseous abnormality. IMPRESSION: No acute cardiopulmonary process is evident. No interval changes. /Bethany
== END | disposition home or self-care (01) ==
LOC: RAH 15:45
PROVIDERS: ATTEND Internal Medicine
DX: R06.02 Shortness of breath (principal); I70.0 Atherosclerosis of aorta
CPT/HCPCS: 71046